=== PATIENT | female | born 2005 | race African-American/Black ===

== ENCOUNTER 2025-02-12 14:48 | Emergency (ER) | payer MEDICARE ==
[~2025-02-12] VITALS: Ht 167.6 cm; Wt 65.0 kg
[2025-02-12 15:19] VITALS: O2SAT 99
[2025-02-12 18:42] VITALS: BP 108/78; PULSE 61; RESP 14; TEMP 36.7; O2SAT 100
[2025-02-12] MEDS: DEXAMETHASONE 10 MG/ML VIAL PO ONE (18:46)
[2025-02-12] MEDS ORDERED: AMOX-494 MT (20:11)
== END 2025-02-12 19:07 | disposition home or self-care (01) ==
LOC: ER 14:48
DX: J03.00 Acute streptococcal tonsillitis, unspecified (principal)
CPT/HCPCS: 99283; 87430; J1100